=== PATIENT | female | born 1945 | race Native Hawaiian/Other Pacific Islander ===

== ENCOUNTER 2017-03-19 10:50 | Outpatient (CLI) | payer OTHER ==
[2017-03-19 11:47] LABS: PLATELET COUNT 217 K/uL (152-353)
== END 2017-03-19 19:06 | disposition home or self-care (01) ==
LOC: LABW 10:50
PROVIDERS: Orthopaedic Surgery
DX: M16.11 Unilateral primary osteoarthritis, right hip (principal); R29.898 Other symptoms and signs involving the musculoskeletal system; I10 Essential (primary) hypertension; Z79.899 Other long term (current) drug therapy; Z51.81 Encounter for therapeutic drug level monitoring
CPT/HCPCS: 36415; 80053; 83036; 84134; 85027; 85651; 86140

== ENCOUNTER 2021-03-18 20:36 | Emergency (ER) | payer OTHER ==
[~2021-03-18] VITALS: Ht 167.6 cm; Wt 68.0 kg
[2021-03-18 22:15] LABS: PLATELET COUNT 153 K/uL (152-353)
[2021-03-18 23:39] LABS: POTASSIUM 4.2 mmol/L (3.6-5.2)
[2021-03-19 00:35] VITALS: BP 172/72; TEMP 97.6
== END 2021-03-19 00:35 | disposition home or self-care (01) ==
LOC: ED 20:36
PROVIDERS: Emergency Medicine Emergency Medical Services
DX: U07.1 COVID-19 (principal); R53.1 Weakness
CPT/HCPCS: 80048; 81000; 85027; 96360; 99284